=== PATIENT | male | born 1965 | race Caucasian/White ===

== ENCOUNTER 2023-12-17 14:12 | Emergency (ER) | payer OTHER ==
[~2023-12-17] VITALS: Ht 185.4 cm; Wt 99.8 kg
[2023-12-17] MEDS: IV NS 0.9% 1,000 ML BAG IV ONE ×2 (14:30→16:00)
[2023-12-17] MEDS ORDERED: LORAZEPAM INJ 2 MG/ML VIAL ONE (14:39)
[2023-12-17] MEDS: LORAZEPAM INJ 2 MG/ML VIAL IV ONE (14:45)
[2023-12-17 14:57] LABS: BASOPHILS # (AUTO) 0.4 K/uL (0.0-0.2); BASOPHILS % (AUTO) 2.4 % (0.0-2.0); EOSINOPHILS % (AUTO) 0.2 % (0.0-6.0); HEMATOCRIT 53 % (39-51); HEMOGLOBIN 17.6 g/dL (13.5-17.5); LYMPHOCYTES # (AUTO) 1.2 K/uL (0.8-4.8); LYMPHOCYTES % (AUTO) 7.9 % (20.0-44.0); MEAN CORPUSCULAR HEMOGLOBIN 30 PG (26.0-33.0); MEAN CORPUSCULAR HGB CONC 33 g/dl (31.0-36.0); MEAN CORPUSCULAR VOLUME 90 fL (80-96); MONOCYTES # (AUTO) 1.1 K/uL (0.1-1.30); MONOCYTES % (AUTO) 7.2 % (2.0-12.0); NEUTROPHILS # (AUTO) 12.7 K/uL (1.8-8.9); NEUTROPHILS % (AUTO) 82.3 % (43.0-81.0); PLATELET COUNT (AUTO) 346 K/uL (150-450); RED BLOOD CELL COUNT(AUTO) 5.91 MIL/uL (4.5-6.0); RED CELL DISTRIBUTION WIDTH 14.5 % (11.5-15.0); WHITE BLOOD COUNT (AUTO) 15.4 K/uL (4.3-11.0)
[2023-12-17 15:06] LABS: CALCIUM, SERUM 10.2 mg/dL (8.5-10.1); CARBON DIOXIDE 21 mmol/L (21-32); CHLORIDE 98 mmol/L (98-107); CREATININE 1.5 mg/dL (0.6-1.3); GLUCOSE 141 mg/dL (74-106); POTASSIUM 3.6 mmol/L (3.5-5.1); SODIUM SERUM 134 mmol/L (136-145); UREA NITROGEN, BLOOD 35 mg/dL (7-18)
[2023-12-17 15:22] LABS: LACTIC ACID 2.7 mmol/L (0.4-2.0)
[2023-12-17 17:56] LABS: BARBITURATE, URINE NEGATIVE (NEGATIVE); BENZODIAZEPINE, URINE NEGATIVE (NEGATIVE); COCCAINE, URINE NEGATIVE (NEGATIVE); OPIATE, URINE NEGATIVE (NEGATIVE); PHENCYCLIDINE SCREEN,URINE NEGATIVE (NEGATIVE)
[2023-12-17 17:58] LABS: AMPHETAMINE, URINE POSITIVE (NEGATIVE); CANNABINOID, URINE POSITIVE (NEGATIVE)
[2023-12-17 18:19] LABS: BILIRUBIN,DIRECT 0.3 mg/dL (0.0-0.2); BILIRUBIN,TOTAL 1.4 mg/dL (0.2-1.0)
[2023-12-17 18:24] LABS: LACTIC ACID REFLEX 1.5 mmol/L (0.4-1.9)
[2023-12-17 18:43] LABS: LYMPHOCYTES % (MANUAL) 13 % (16-48); MONOCYTES % (MANUAL) 8 % (0-11.0); NEUTROPHILS % (MANUAL) 79 (42-76); PLATELET ESTIMATE ADEQUATE
[2023-12-17 19:32] VITALS: BP 134/86; TEMP 98; O2SAT 99
== END 2023-12-17 19:35 | disposition home or self-care (01) ==
LOC: ER 14:15
DX: R07.9 Chest pain, unspecified (principal); R00.0 Tachycardia, unspecified; E87.20 Acidosis, unspecified; F10.10 Alcohol abuse, uncomplicated; F15.10 Other stimulant abuse, uncomplicated; Y90.0 Blood alcohol level of less than 20 mg/100 ml
CPT/HCPCS: 99285; 96374; 96361; 93005 ×2; 71045; 82247; 82248; 85025; 80048; 82550; 87040 ×2; 83605 ×2; 85378; 85007; 36415; 84484 ×2; 80320; 80307; J2060; J7030; G0480

== ENCOUNTER 2023-12-18 15:24 | Emergency (ER) | payer OTHER ==
[~2023-12-18] VITALS: Ht 185.4 cm; Wt 94.8 kg
[2023-12-18 18:32] VITALS: BP 120/87; TEMP 98.4; O2SAT 99
== END 2023-12-18 18:32 | disposition home or self-care (01) ==
LOC: ER 15:24
DX: R55 Syncope and collapse (principal)
CPT/HCPCS: 36415; 70450-TC; G0480